=== PATIENT | female | born 1955 | race Caucasian/White ===

== ENCOUNTER → 2017-05-10 | Outpatient (CLI) | payer MEDICARE, MEDICAID ==
[~2017-05-10] MED LIST: ASPI-496 PO; ASPI325T4 PO; DIAZ5TAB PO; DIAZ5TAB4 PO; DIVA500T4 PO; DOCU-30 PO; DOXY-168 PO; GABA-826 PO; GABA600T PO; HYDR-3144 PO; METH750T87 PO; MORP-52 PO; NAPR500T3 PO; NICO2LOZ PO; ONDA4TAB7 PO; OXYC15TA PO; OXYC5TAB3 PO; PANT40TA3 PO; PARO20TA4 PO; PRAV20TA PO; PRAV20TA2 PO; SENN-109 PO; TRAZ100T15 PO; TRAZODONE HCL PO; VARE1TAB21 PO
== END | disposition home or self-care (01) ==
LOC: CFH 14:28
PROVIDERS: ATTEND Nurse Practitioner
DX: M50.322 Other cervical disc degeneration at C5-C6 level (principal); M50.323 Other cervical disc degeneration at C6-C7 level; M48.02 Spinal stenosis, cervical region; M50.20 Other cervical disc displacement, unspecified cervical region; M25.78 Osteophyte, vertebrae; M50.221 Other cervical disc displacement at C4-C5 level; M50.222 Other cervical disc displacement at C5-C6 level
CPT/HCPCS: 72141

== ENCOUNTER → 2017-07-05 | Outpatient (CLI) | payer MEDICARE, MEDICAID | END | disposition home or self-care (01) | LOC: PETCFH 08:05 | PROVIDERS: ATTEND Internal Medicine Gastroenterology | DX: R10.13 Epigastric pain (principal); G89.29 Other chronic pain; R13.19 Other dysphagia | CPT/HCPCS: 78227; A9537 ==

== ENCOUNTER 2018-06-16 18:01 | Emergency (ER) | payer MEDICARE, MEDICAID ==
[~2018-06-16] VITALS: Ht 152.4 cm; Wt 44.5 kg
[~2018-06-16 18:01] MED LIST changes: +ASPI325T17 PO; -ASPI325T4 PO; +DOCU-131 PO; -DOCU-30 PO; -DOXY-168 PO; +DOXY100T10 PO; -HYDR-3144 PO; +HYDR-3245 PO; +NAPR-685 PO; -NAPR500T3 PO; +NICO-523 PO; -NICO2LOZ PO; -SENN-109 PO; +SENN-99 PO
[2018-06-16 18:13] VITALS: BP 126/79
[2018-06-16] MEDS ORDERED: IBUPROFEN 200 MG TABLET ONE (18:48)
[2018-06-16] MEDS ORDERED: DIPHENHYDRAMINE 25 MG CAPSULE ONE (18:48)
[2018-06-16] MEDS ORDERED: IBUPROFEN 200 MG TABLET PO ONE (19:00)
[2018-06-16] MEDS ORDERED: DIPHENHYDRAMINE 25 MG CAPSULE PO ONE (19:00)
[2018-06-17] MEDS ORDERED: TRAM50TA2 PO (06:58)
[2018-06-17] MEDS ORDERED: LORA0.5T PO (06:58)
== END 2018-06-16 18:57 | disposition home or self-care (01) ==
LOC: ED 18:50
DX: T63.461A Toxic effect of venom of wasps, accidental (unintentional), initial encounter (principal); G24.3 Spasmodic torticollis; Y92.89 Other specified places as the place of occurrence of the external cause
CPT/HCPCS: 99283; Q0163

== ENCOUNTER 2018-06-17 06:06 | Emergency (ER) | payer MEDICARE, MEDICAID ==
[~2018-06-17] VITALS: Ht 152.4 cm; Wt 43.0 kg
[2018-06-17] MEDS ORDERED: HYDROmorphone 2 MG/ML, 1ML ONE (06:27)
[2018-06-17] MEDS ORDERED: METHOCARBAMOL 750 MG TABLET ONE (06:27)
[2018-06-17] MEDS ORDERED: METHOCARBAMOL 750 MG TABLET PO ONE (06:30)
[2018-06-17] MEDS ORDERED: HYDROmorphone 1 MG/ML, 1ML IM ONE (06:30)
[2018-06-17] MEDS ORDERED: LORA0.5T PO (06:58)
[2018-06-17] MEDS ORDERED: TRAM50TA2 PO (06:58)
[2018-06-17 07:54] VITALS: BP 129/72
== END 2018-06-17 07:56 | disposition home or self-care (01) ==
LOC: ED 06:43
DX: H05.011 Cellulitis of right orbit (principal); M43.6 Torticollis; G89.29 Other chronic pain; M54.6 Pain in thoracic spine; M54.2 Cervicalgia; E11.9 Type 2 diabetes mellitus without complications; J44.9 Chronic obstructive pulmonary disease, unspecified; E78.5 Hyperlipidemia, unspecified
CPT/HCPCS: 96372; 99283; J1170

== ENCOUNTER → 2019-12-05 | Outpatient (CLI) | payer MEDICARE, MEDICAID ==
[~2019-12-05] MED LIST changes: -DOXY100T10 PO; +DOXY100T23 PO; +LORA0.5T PO; +TRAM50TA2 PO; +TRAZ-137 PO; -TRAZ100T15 PO
== END | disposition home or self-care (01) ==
LOC: CFH 09:24
PROVIDERS: ATTEND Nurse Practitioner Primary Care
DX: Z12.2 Encounter for screening for malignant neoplasm of respiratory organs (principal); R91.1 Solitary pulmonary nodule; F17.210 Nicotine dependence, cigarettes, uncomplicated
CPT/HCPCS: G0297

== ENCOUNTER → 2020-01-01 | Outpatient (CLI) | payer MEDICARE, MEDICAID ==
[~2020-01-01] MED LIST changes: -TRAZ-137 PO; +TRAZ-175 PO
== END | disposition home or self-care (01) ==
LOC: PETCFH 09:40
PROVIDERS: ATTEND Nurse Practitioner Primary Care
DX: R91.1 Solitary pulmonary nodule (principal)
CPT/HCPCS: 78815; A9552

== ENCOUNTER 2020-04-28 09:28 | Outpatient (CLI) | payer MEDICARE, MEDICAID ==
[~2020-04-28 09:28] MED LIST changes: -DULO30CA2 PO; -PRAM0.12 PO; -TRAZ50TA66 PO
[2020-04-28] MEDS ORDERED: DULO30CA2 PO (09:53)
[2020-04-28] MEDS ORDERED: TRAZ50TA66 PO (09:53)
[2020-04-28] MEDS ORDERED: PRAM0.12 PO (09:53)
[2020-04-28] MEDS ORDERED: TRAM50TA2 PO (10:14)
== END 2020-04-28 23:59 | disposition home or self-care (01) ==
LOC: STAR 09:28
PROVIDERS: ATTEND Internal Medicine
DX: Z01.818 Encounter for other preprocedural examination (principal); R91.8 Other nonspecific abnormal finding of lung field
CPT/HCPCS: 93005; U0001-CS

== ENCOUNTER → 2020-04-28 | Outpatient (CLI) | payer MEDICARE, MEDICAID ==
[~2020-04-28] MED LIST changes: +DULO30CA2 PO; -OXYC15TA PO; +OXYC15TA3 PO; +PRAM0.12 PO; +TRAZ50TA66 PO
== END | disposition home or self-care (01) ==
LOC: CFH 08:25
PROVIDERS: ATTEND Internal Medicine
DX: R91.1 Solitary pulmonary nodule (principal); R06.02 Shortness of breath
CPT/HCPCS: 71250

== ENCOUNTER 2020-05-05 08:06 | Day surgery (SDC) | payer MEDICARE, MEDICAID ==
[~2020-05-05] VITALS: Ht 152.4 cm; Wt 48.6 kg
[~2020-05-05 08:06] MED LIST changes: +DULO30CA2 PO; +PRAM0.12 PO; +TRAZ50TA66 PO
[2020-05-05 08:35] VITALS: BP 159/90
[2020-05-05] MEDS ORDERED: LACTATED RINGERS 1,000 ML IV SCH (09:00)
[2020-05-05] MEDS ORDERED: CHLORHEXIDINE 15 ML UDC MM ONE (09:00)
[2020-05-05] MEDS ORDERED: ROCURONIUM 10MG/ML,5ML ONE (09:24)
[2020-05-05] MEDS ORDERED: PROPOFOL 10 MG/ML, 20ML ONE ×2 (09:24→09:26)
[2020-05-05] MEDS ORDERED: SUCCINYLCHOLINE 20 MG/ML, 10ML ONE (09:24)
[2020-05-05] MEDS ORDERED: FENTANYL PF 100 MCG/2ML ONE (09:24)
[2020-05-05] MEDS ORDERED: MEPERIDINE/PF 25MG/0.5ML IVPush PRN (09:30)
[2020-05-05] MEDS ORDERED: FENTANYL PF 100 MCG/2ML IV PRN (09:30)
[2020-05-05] MEDS ORDERED: PROMETHAZINE 25 MG/ML, 1ML IVPush PRN (09:30)
[2020-05-05] MEDS ORDERED: ALBUTEROL SULFATE 2.5 MG/3 ML NPPB PRN (09:30)
[2020-05-05] MEDS ORDERED: ACETAMINOPHEN 325 MG TABLET PO PRN (09:30)
[2020-05-05] MEDS ORDERED: OXYcodone 5 MG/5 ML ORAL.SOL UDC PO PRN (09:30)
[2020-05-05] MEDS ORDERED: SUGAMMADEX 200 MG/2 ML IVPush ONE (11:18)
[2020-05-05] MEDS ORDERED: ONDANSETRON 2MG/ML, 2ML ONE (11:18)
== END 2020-05-05 14:20 | disposition home or self-care (01) ==
LOC: OUT 08:06
PROVIDERS: ATTEND Internal Medicine
DX: R91.8 Other nonspecific abnormal finding of lung field (principal); J44.9 Chronic obstructive pulmonary disease, unspecified; F33.41 Major depressive disorder, recurrent, in partial remission; K21.9 Gastro-esophageal reflux disease without esophagitis; E78.00 Pure hypercholesterolemia, unspecified; M81.0 Age-related osteoporosis without current pathological fracture; G47.00 Insomnia, unspecified; F12.90 Cannabis use, unspecified, uncomplicated; Z79.899 Other long term (current) drug therapy; Z88.5 Allergy status to narcotic agent; Z87.891 Personal history of nicotine dependence; Z72.89 Other problems related to lifestyle; Z82.49 Family history of ischemic heart disease and other diseases of the circulatory system; Z83.3 Family history of diabetes mellitus; Z90.49 Acquired absence of other specified parts of digestive tract; Z98.890 Other specified postprocedural states
CPT/HCPCS: 31623; 31624; 31628; 71045; 87015; 87070; 87102; 87116; 87205; 87206; 88112; 88172; 88173; 88177; 88305; 88333; J0330; J2405; J2704; J3010; J7120; 31625; 76000

== ENCOUNTER → 2020-08-31 | Outpatient (CLI) | payer MEDICARE, MEDICAID | END | disposition home or self-care (01) | LOC: CFH 10:17 | PROVIDERS: ATTEND Internal Medicine | DX: J98.4 Other disorders of lung (principal); R91.8 Other nonspecific abnormal finding of lung field | CPT/HCPCS: 71250 ==

== ENCOUNTER 2021-05-23 08:14 | Outpatient (CLI) | payer MEDICARE, MEDICAID ==
[~2021-05-23 08:14] MED LIST changes: -HYDR-3245 PO; +HYDR1TAB53 PO; -OXYC5TAB3 PO; +OXYC5TAB98 PO
== END 2021-05-23 23:59 | disposition home or self-care (01) ==
LOC: CFH 08:14
PROVIDERS: ATTEND Nurse Practitioner
DX: M85.88 Other specified disorders of bone density and structure, other site (principal); M50.13 Cervical disc disorder with radiculopathy, cervicothoracic region; M81.0 Age-related osteoporosis without current pathological fracture; M53.3 Sacrococcygeal disorders, not elsewhere classified; M54.6 Pain in thoracic spine; M48.02 Spinal stenosis, cervical region; M54.5 Low back pain
CPT/HCPCS: 72072; 72114; 72141; 77080

== ENCOUNTER 2021-05-26 12:27 | Emergency (ER) | payer MEDICARE, MEDICAID ==
[~2021-05-26] VITALS: Ht 162.6 cm; Wt 50.7 kg
[2021-05-26 12:41] VITALS: BP 134/72
[2021-05-26] MEDS ORDERED: DIAZEPAM 5 MG TABLET ONE (13:10)
[2021-05-26] MEDS ORDERED: OXYcodone/APAP 5/325MG TABLET ONE (13:10)
--- NOTE | 2021-05-26 13:13 | NUR ---
MEDS ADMIN PER JAN. PT WILL HAVE FRIEND DRIVE HER HOME,.
[2021-05-26] MEDS ORDERED: DIAZEPAM 5 MG TABLET PO ONE (13:30)
[2021-05-26] MEDS ORDERED: OXYcodone/APAP 5/325MG TABLET PO ONE (13:30)
--- NOTE | 2021-05-26 14:13 | NUR ---
PT STATES PAIN IS BETTER, SHE CAN MOVE HER NECK MORE. CHART UP FOR RECHECK.
== END 2021-05-26 14:39 | disposition home or self-care (01) ==
LOC: ED 14:25
DX: M54.2 Cervicalgia (principal); G89.29 Other chronic pain; M54.6 Pain in thoracic spine; J44.9 Chronic obstructive pulmonary disease, unspecified; E78.00 Pure hypercholesterolemia, unspecified; E11.649 Type 2 diabetes mellitus with hypoglycemia without coma
CPT/HCPCS: 99284; J7512

== ENCOUNTER 2021-06-06 09:55 | Emergency (ER) | payer MEDICARE, MEDICAID ==
[~2021-06-06] VITALS: Ht 152.4 cm; Wt 50.9 kg
--- NOTE | 2021-06-06 10:01 | NUR ---
BIB EMS FROM HOME FOR C/O LOWER BACK AND NECK PAIN STARTED 3 WEEKS AGO. PT STATES IT STARTED THE LAST DAY SHE WORKED WHERE SHE WAS OVERWORKED AND THE PAIN STARTED THEN. HX CERVICAL SURGERY (2017) AND 2 LUMBAR SURGERY (MARCH 2015 AND 2015). PT ALSO HAS C/O R INGUINAL PAIN TENDER ON PALPATION. 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 PT RESTING ON GURNEY. NADN. MONITORS APPLIED. VSS. WARMV BLANKET PROVIDED. CALL LIGHT IN REACH.
--- NOTE | 2021-06-06 10:45 | NUR ---
PT RESTING ON GURNEY. NADN. NAGY.
[2021-06-06] MEDS ORDERED: HYDROmorphone 1 MG/ML, 1ML INJ ONE (11:23)
[2021-06-06] MEDS ORDERED: HYDROmorphone 1 MG/ML, 1ML INJ IM ONE (11:30)
[2021-06-06 11:34] LABS: BASOPHILS % (AUTO) 0 % (0-1); EOSINOPHILS % (AUTO) 0 % (1-7); LYMPHOCYTES % (AUTO) 22 % (22-44); MEAN CORPUSCULAR HEMOGLOBIN 32.8 pg (27.0-34.8); MEAN CORPUSCULAR HGB CONC 35.3 g/dL (32.4-35.8); MEAN PLATELET VOLUME 8.1 fL (7.4-10.4); MONOCYTES % (AUTO) 8 % (2-9); NEUTROPHILS % (AUTO) 70 % (42-75); PLATELET COUNT 322 x10^3/uL (130-400); RED BLOOD COUNT 4.49 x10^6/uL (3.82-5.3); RED CELL DISTRIBUTION WIDTH 14.1 % (9.6-15.2)
[2021-06-06 11:35] LABS: HCT (SEDRATE) 41.7 % (34.6-47.8)
[2021-06-06 11:38] LABS: ALBUMIN 2.8 g/dL (3.4-5.0); ANION GAP 5 mmol/L (5-15); CALCIUM 8.6 mg/dL (8.5-10.1); CHLORIDE 104 mmol/L (98-107); CREATININE 0.74 mg/dL (0.55-1.02)
[2021-06-06 11:45] LABS: MICROSCOPIC NOT IND
--- NOTE | 2021-06-06 11:50 | NUR ---
PT TAKEN TO IMAGING IN STABLE CONDITION. FAINAN. VSS.
--- NOTE | 2021-06-06 12:17 | NUR ---
YELLOW SLIP SENT TO PHARMACY FOR MEDS PER JAN.
[2021-06-06] MEDS ORDERED: POTASSIUM CHLORIDE 40 MEQ in SODIUM CHLORIDE 0.9% 500 ML IV ONE (12:30)
[2021-06-06] MEDS ORDERED: OMNIPAQUE 350 MG/ML, 100ML BOTTLE ONE (12:57)
--- NOTE | 2021-06-06 13:25 | NUR ---
PT RESTING ON GURNEY. NADN. NAGY.
--- NOTE | 2021-06-06 13:43 | NUR ---
ERP DR. FERNANDEZ AT BEDSIDE FOR RE-EVAL.
--- NOTE | 2021-06-06 15:02 | NUR ---
PT RESTING ON GURNEY. NADN. NAGY.
--- NOTE | 2021-06-06 15:05 | NUR ---
PT STATES SHE IS CONCERNED ABOUT GOING HOME. BELIEVES SHE NEEDS HELP AT HOME DURING HER CURRENT STATE. YISSEL CAMPBELL NOTIFIED OF PT. STATES SHE WILL COME DOWN TO SEE HER.
--- NOTE | 2021-06-06 15:36 | NUR ---
YISSEL CAMPBELL AT BEDSIDE FOR EVAL.
--- NOTE | 2021-06-06 15:43 | NUR ---
PER ERP DR. JIM PICKARD TO STOP IV K+ INFUSION PT K+ WAS 3.1 AND PT HAS RECEIVED MORE THAN HALF OF INFUSION.
[2021-06-06 16:06] VITALS: BP 111/66
== END 2021-06-06 16:24 | disposition home or self-care (01) ==
LOC: ED 10:41
DX: M79.651 Pain in right thigh (principal); G89.29 Other chronic pain; M47.812 Spondylosis without myelopathy or radiculopathy, cervical region
CPT/HCPCS: 36415; 72190; 74177; 80048; 81003; 82040; 85025; 85651; 86140; 96365; 96366; 96372; 99285; J1170; J3480; J7040; Q9967

== ENCOUNTER 2021-08-04 08:20 | Outpatient (CLI) | payer MEDICARE, MEDICAID ==
[2021-08-04 08:48] LABS: ALANINE AMINOTRANSFERASE 29 U/L (12-78); ALBUMIN 3.7 g/dL (3.4-5.0); ANION GAP 6 mmol/L (5-15); CALCIUM 9.4 mg/dL (8.5-10.1); CHLORIDE 105 mmol/L (98-107)
[2021-08-04 08:51] LABS: ALKALINE PHOSPHATASE 101 U/L (45-117); BILIRUBIN,TOTAL 0.7 mg/dL (0.2-1.0); CHOL/HDL RATIO 1.9; CHOLESTEROL, TOTAL 147 mg/dL (140-239); CREATININE 0.91 mg/dL (0.55-1.02); HDL CHOL % 52 % (28-40); HDL CHOLESTEROL (DIRECT) 77 mg/dL (40-60); LDL CHOLESTEROL,CALCULATED 52 mg/dL (54-169); LDL/HDL RATIO 0.7 (0.5-3.0); TOTAL PROTEIN 8.2 g/dL (6.4-8.2); TRIGLYCERIDES 92 mg/dL (50-200); VLDL CHOLESTEROL 18 mg/dL (0-25)
== END 2021-08-04 23:59 | disposition home or self-care (01) ==
LOC: LAB 08:20
PROVIDERS: ATTEND Nurse Practitioner Primary Care
DX: R73.01 Impaired fasting glucose (principal); E78.49 Other hyperlipidemia
CPT/HCPCS: 36415; 80053; 80061; 83036